=== PATIENT | female | born 1985 ===

== ENCOUNTER 2017-10-03 08:54 | Emergency (ER) | payer OTHER ==
[2017-10-03 09:07] VITALS: BP 125/78; PULSE 84; RESP 20; TEMP 98.6; O2SAT 100
[2017-10-03] MEDS ORDERED: Lidocaine 1% Inj (20ml) IJ ONE (09:41)
--- NOTE | 2017-10-03 09:49 | ED PDOC ---
HPI: Trauma/Fall - HPI Time Seen by Provider: 10/03/17 09:16 Chief Complaint (Nursing): Abnormal Skin Integrity Chief Complaint (Provider): right elbow injury History Per: Patient History/Exam Limitations: no limitations Injury Occurred (Timing): Just Before Arrival Location Of Injury: Right: Elbow (olecranon) Posterior Full Body: 1 - laceration/ pain Severity: Mild Associated Symptoms: denies: Dizziness, Dazed, LOC Additional Complaint(s): 32yo female states she slipped/fell on metal grate, fell onto R elbow, denies head or neck trauma. C/o pain and small laceration to right elbow. Denies hand/ wrist/shoulder/neck/head or chest pain. Tetanus UTD (last year for trip to [facility]). Past Medical History Reviewed: Historical Data, Nursing Documentation, Vital Signs Vital Signs: Last Vital Signs Temp 98.6 F 10/03/17 09:06 Pulse 84 10/03/17 09:06 Resp 20 10/03/17 09:06 BP 125/78 10/03/17 09:06 Pulse Ox 100 10/03/17 09:52 - Medical History PMH: No Chronic Diseases - Family History Family History: States: Unknown Family Hx - Home Medications Home Medications: Ambulatory Orders Medication Instructions Recorded Clindamycin [Cleocin] 150 mg PO TID #9 cap 10/03/17 - Allergies Allergies/Adverse Reactions: Allergies Allergy/AdvReac Type Severity Reaction Status Date / Time Penicillins Allergy RASH Verified 10/03/17 09:27 Review of Systems Constitutional: Negative for: Weakness, Malaise Eyes: Negative for: Vision Change ENT: Negative for: Throat Pain Cardiovascular: Negative for: Chest Pain Respiratory: Negative for: Shortness of Breath Gastrointestinal: Negative for: Nausea, Abdominal Pain Genitourinary Female: Negative for: Frequency Musculoskeletal: Positive for: Arm Pain. Negative for: Neck Pain, Shoulder Pain , Back Pain, Hand Pain, Leg Pain, Foot Pain Skin: Negative for: Rash, Lesions, Jaundice Neurological: Negative for: Weakness, Numbness, Seizures, Headache, Dizziness Physical Exam - Reviewed Nursing Documentation Reviewed: Yes Vital Signs Reviewed: Yes - Physical Exam Appears: Positive for: Well, Non-toxic Head Exam: Positive for: ATRAUMATIC Eye Exam: Negative for: Periorbital swelling Cardiovascular/Chest: Negative for: Tachycardia Respiratory: Negative for: Respiratory Distress Extremity: Positive for: Normal ROM, Other (mild tenderness R olecranon, 1cm laceration linerar R olecranon, no ecchymosis or deformity R elbow, FROM and nontender b/l wrist/shoulder, hips) Neurologic/Psych: Positive for: Alert, Oriented, Gait (stable). Negative for: Motor/Sensory Deficits - ECG O2 Sat by Pulse Oximetry: 100 Pulse Ox Interpretation: Normal - Radiology X-Ray: Interpreted by Md X-Ray Interpretation: Other (neg fracture or FB to R elbow) Medical Decision Making Medical Decision Making: procedure note laceration repair verbal consent obtained 1.5cm R olecranon simple linear Anesthetized w 6ml lidocaine 1% chlorhexidine to skin surrounding wound irrigated 250ml sterile saline under pressure three 3-0 nylon sutures placed good wound margin approximation bacitracin applied wound care instructions provided Rx clinamycin x3 days given proximity to joint offered Communication [employer] wound check if she desires in 2 days bacitracin samples given Disposition - Clinical Impression Clinical Impression: Elbow laceration, Elbow contusion - Patient ED Disposition Is Patient to be Admitted: No Counseled Patient/Family Regarding: Studies Performed, Diagnosis, Need For Followup, Rx Given - Disposition Referrals: Des Carroll MD [Staff Provider] - Disposition Time: 10:25 Condition: STABLE Additional Instructions: Keep area clean and dry, sutures out in 7 days, return to ER for any worsening symptoms, redness/swelling/discharge, fever, arm pain or any concern. Prescriptions: Clindamycin [Cleocin] 150 mg PO TID #9 cap Instructions: Laceration Repair, Wound Care (DC) Forms: [employer] ([place])
[2017-10-03] MEDS ORDERED: Lidocaine Hydrochloride 1% 10 ML ONE (09:54)
[2017-10-03] MEDS ORDERED: Lidocaine 1% (10 ml) Inj INJ ONE (10:30)
--- NOTE | 2017-10-03 10:42 | RAD ---
RIGHT ELBOW SERIES Three views the right elbow been submitted for evaluation of trauma related to fall. No prior comparison available. There is no acute fracture, dislocation or suspicious lytic or blastic change identified. Local soft tissues appear diffusely unremarkable. No secondary signs of significant joint effusion appreciable. Radial head appears intact. IMPRESSION: No acute fracture or dislocation right elbow.
== END 2017-10-03 10:47 | disposition home or self-care (01) ==
LOC: H.ER 08:54
DX: S59.901A Unspecified injury of right elbow, initial encounter (principal); W00.0XXA Fall on same level due to ice and snow, initial encounter; Y92.89 Other specified places as the place of occurrence of the external cause; Z88.0 Allergy status to penicillin